=== PATIENT | male | born 1935 | race Caucasian/White ===

== ENCOUNTER 2017-06-21 10:54 | Outpatient (RCR) | payer MEDICARE, OTHER ==
[2017-06-17 10:58] VITALS: BP 156/65
[~2017-06-21 10:54] MED LIST: ALE70 PO; ALLERGY SHOTS SUBQ; AZIT-9 PO; CIP500 PO; COS10OD OU; FLUT12HF2 INH; HYDR12.561 PO; LEVO5TAB8 PO; LISI-374 PO; MECL25TA9 PO; PHEN240S3 PO; PRE20 PO; PRED-314 PO
== END 2017-06-22 11:24 | disposition home or self-care (01) ==
LOC: RAON 10:54
PROVIDERS: ATTEND Radiology Radiation Oncology
DX: Z85.46 Personal history of malignant neoplasm of prostate (principal); I10 Essential (primary) hypertension; Z92.3 Personal history of irradiation; Z87.891 Personal history of nicotine dependence
CPT/HCPCS: 36415; 84153; G0463; 99212

== ENCOUNTER 2018-05-22 14:06 | Emergency (ER) | payer MEDICARE, OTHER ==
--- NOTE | 2018-05-22 14:54 | ER Report ---
History and Physical Time Seen By MD: 14:54 HPI/ROS CHIEF COMPLAINT: diarrhea, vomiting HISTORY OF PRESENT ILLNESS: This is an 82 year old male. He has had nausea and vomiting and diarrhea since yesterday. Multiple episodes. Feeling weak and di zzy. No abdominal pain. No chest pain. No cough or shortness of breath. No sick contacts. Unsure about any possible food poisoning. Allergies: Coded Allergies: No Known Drug Allergies (Unverified , 05/22/18) Home Meds Active Scripts Ondansetron 4 Mg Odt (ONDANSETRON 4 MG ODT) 4 Mg Tab.rapdis, 4 MG PO Q6H PRN for NAUSEA/VOMITING, #20 TAB 0 Refills Prov:ALBANIA FRANKLIN MD 05/22/18 Reported Medications [Allergy Shots] No Conflict Check, SUBQ Q2WK 06/18/15 Hydrochlorothiazide (Hydrochlorothiazide) 12.5 Mg Tablet, 12.5 MG PO DAILY, 0 Refills 04/12/12 Lisinopril (Lisinopril) 40 Mg Tablet, 40 MG PO DAILY, 0 Refills 04/12/12 Levocetirizine Dihydrochloride (XYZAL) 5 Mg Tablet, 5 MG PO DAILY, 0 Refills 04/12/12 Discontinued Reported Medications Salmeterol Xinaf/Fluticasone (Advair Hfa 115/21 Mcg Inhaler) 1 Puff Inh, 1 PUFF INH BID, 0 Refills 04/12/12 Discontinued Scripts Meclizine Hcl (MECLIZINE HCL) 25 Mg Tablet, 25 MG PO TID, #30 TAB Prov:RACHEAL ARREOLA MD 10/09/15 Reviewed Nurses Notes: Yes Hx Smoking: No Smoking Status: Never Smoker Exposure to Second Hand Smoke?: No Hx Substance Use Disorder: No Hx Alcohol Use: No Constitutional Vital Sign - Last 24 Hours 05/22/18 05/22/18 05/22/18 05/22/18 15:00 15:02 15:06 15:30 Temp 98.2 Pulse 84 83 Resp 12 B/P (MAP) 124/59 (80) 124/59 106/55 (72) Pulse Ox 90 90 O2 Delivery Room Air Room Air 05/22/18 05/22/18 05/22/18 05/22/18 15:36 15:58 16:00 16:11 Pulse 74 66 B/P (MAP) 103/51 (68) Pulse Ox 84 95 98 O2 Delivery Room Air Nasal Cannula Nasal Cannula O2 Flow Rate 2 2 05/22/18 05/22/18 05/22/18 05/22/18 16:30 16:35 17:00 17:05 Pulse 66 70 B/P (MAP) 99/52 (68) 108/54 (72) Pulse Ox 98 93 O2 Delivery Nasal Cannula Nasal Cannula O2 Flow Rate 2 2 05/22/18 05/22/18 05/22/18 05/22/18 17:30 17:35 18:00 18:05 Pulse 69 68 B/P (MAP) 104/52 (69) 91/50 (64) Pulse Ox 93 94 O2 Delivery Room Air Room Air 05/22/18 05/22/18 05/22/18 05/22/18 18:30 18:35 18:40 19:00 Pulse 67 68 B/P (MAP) 103/52 (69) 104/54 (71) Pulse Ox 95 97 O2 Delivery Room Air 05/22/18 05/22/18 05/22/18 19:10 19:15 19:30 Pulse 68 67 B/P (MAP) 105/50 (68) Pulse Ox 97 95 Intake and Output 05/22/18 05/22/18 05/23/18 15:00 23:00 07:00 Intake Total 3000 ml Balance 3000 ml Physical Exam General Appearance: Alert, no distress. Eyes: Pupils equal and round no injection. ENT: Normal oral mucosa. Moist mucous membranes. Neck: Neck is supple and non tender. Respiratory: Chest is non tender, lungs are clear to auscultation. Cardiac: regular rate and rhythm Gastrointestinal: Abdomen is soft and non tender, no masses, bowel sounds normal. Musculoskeletal: Extremities have full range of motion. Non tender. Skin: No rashes or lesions. Neuro: Alert and oriented x3. No acute distress. DIFFERENTIAL DIAGNOSIS: After history and physical exam differential diagnosis was considered for ongoing nausea, vomiting and diarrhea, signs of dehydration, we'll look for various causes of this. Medical Decision Making Data Points Result Diagram: 05/22/18 1532 05/22/18 1532 Laboratory Hematology Test 05/22/18 15:32 Red Blood Count 4.52 M/uL (4.00-5.60) Mean Corpuscular Volume 98.3 fL (80.0-96.0) Mean Corpuscular Hemoglobin 32.7 pg (26.0-33.0) Mean Corpuscular Hemoglobin Concent 33.3 g/dL (32.0-36.0) Red Cell Distribution Width 13.3 % (11.5-14.5) Mean Platelet Volume 8.1 fL (7.2-11.1) Neutrophils (%) (Auto) 92.4 % (39.4-72.5) Lymphocytes (%) (Auto) 2.1 % (17.6-49.6) Monocytes (%) (Auto) 5.0 % (4.1-12.4) Eosinophils (%) (Auto) 0.0 % (0.4-6.7) Basophils (%) (Auto) 0.5 % (0.3-1.4) Nucleated RBC Relative Count (auto) 1.0 /100WBC Neutrophils # (Auto) 10.9 K/uL (2.0-7.4) Lymphocytes # (Auto) 0.3 K/uL (1.3-3.6) Monocytes # (Auto) 0.6 K/uL (0.3-1.0) Eosinophils # (Auto) 0.0 K/uL (0.0-0.5) Basophils # (Auto) 0.1 K/uL (0.0-0.1) Nucleated RBC Absolute Count (auto) 0.11 K/uL Sodium Level 135 mmol/L (137-145) Potassium Level 4.3 mmol/L (3.5-5.0) Chloride Level 107 mmol/L (98-107) Carbon Dioxide Level 21 mmol/L (22-30) Blood Urea Nitrogen 39 mg/dl (9-21) Creatinine 1.60 mg/dl (0.66-1.25) Glomerular Filtration Rate Calc 41.4 Random Glucose 127 mg/dl (75-110) Calcium Level 8.7 mg/dl (8.4-10.2) Total Bilirubin 0.8 mg/dl (0.2-1.3) Aspartate Amino Transf (AST/SGOT) 21 U/L (0-35) Alanine Aminotransferase (ALT/SGPT) 28 U/L (0-56) Alkaline Phosphatase 49 U/L (0-126) Total Protein 6.9 g/dl (6.3-8.2) Albumin 4.1 g/dl (3.5-5.0) Chemistry Test 05/22/18 15:32 White Blood Count 11.8 k/uL (4.5-11.0) Red Blood Count 4.52 M/uL (4.00-5.60) Hemoglobin 14.8 g/dL (14.0-18.0) Hematocrit 44.4 % (42.0-52.0) Mean Corpuscular Volume 98.3 fL (80.0-96.0) Mean Corpuscular Hemoglobin 32.7 pg (26.0-33.0) Mean Corpuscular Hemoglobin Concent 33.3 g/dL (32.0-36.0) Red Cell Distribution Width 13.3 % (11.5-14.5) Platelet Count 280 K/uL (150-450) Mean Platelet Volume 8.1 fL (7.2-11.1) Neutrophils (%) (Auto) 92.4 % (39.4-72.5) Lymphocytes (%) (Auto) 2.1 % (17.6-49.6) Monocytes (%) (Auto) 5.0 % (4.1-12.4) Eosinophils (%) (Auto) 0.0 % (0.4-6.7) Basophils (%) (Auto) 0.5 % (0.3-1.4) Nucleated RBC Relative Count (auto) 1.0 /100WBC Neutrophils # (Auto) 10.9 K/uL (2.0-7.4) Lymphocytes # (Auto) 0.3 K/uL (1.3-3.6) Monocytes # (Auto) 0.6 K/uL (0.3-1.0) Eosinophils # (Auto) 0.0 K/uL (0.0-0.5) Basophils # (Auto) 0.1 K/uL (0.0-0.1) Nucleated RBC Absolute Count (auto) 0.11 K/uL Glomerular Filtration Rate Calc 41.4 Calcium Level 8.7 mg/dl (8.4-10.2) Total Bilirubin 0.8 mg/dl (0.2-1.3) Aspartate Amino Transf (AST/SGOT) 21 U/L (0-35) Alanine Aminotransferase (ALT/SGPT) 28 U/L (0-56) Alkaline Phosphatase 49 U/L (0-126) Total Protein 6.9 g/dl (6.3-8.2) Albumin 4.1 g/dl (3.5-5.0) EKG/Imaging Imaging Exam type: ACUTE ABDOMEN SERIES 3 VIEW History: vomiting, diarrhea Comparison: Two-view chest June 18, 2012. Findings: There are small air-fluid levels in the nondilated large and small bowel. There is no evidence of free air beneath hemidiaphragms. No evidence organomegaly. There is a dextroconvex scoliosis of the lumbar spine with extensive spondylotic changes. Frontal view the chest demonstrates mild pleural thickening of the left costophrenic angle. There is no evidence of acute pulmonary consolidation. The cardiac silhouette appears mildly enlarged but unchanged. There are spondylotic changes of the thoracic spine IMPRESSION: 1. Small air-fluid level seen in the nondilated large and small bowel No evidence of pulmonary consolidation Report Dictated By: Jeannie Garay MD at 05/22/2018 3:59 PM ED Course/Re-evaluation Clinical Indication for ER IV: Hydration, IV Access ED Course The patient felt much better after a liter of normal saline and some Zofran. No further diarrhea so we were unable to obtain stool studies. He had a second liter of normal saline as well. Labs unremarkable other than signs of dehydration. Decision to Disposition Date: May 22, 2018 Decision to Disposition Time: 17:16 Depart Departure Latest Vital Signs Vital Signs Date Time Temp Pulse Resp B/P (MAP) Pulse Ox O2 Delivery O2 Flow Rate FiO2 05/22/18 19:30 105/50 (68) 05/22/18 19:15 67 95 05/22/18 18:35 Room Air 05/22/18 17:05 2 05/22/18 15:02 98.2 12 Impression: Primary Impression: Nausea & vomiting Additional Impressions: Diarrhea Dehydration Condition: Improved Disposition: HOME OR SELF-CARE Referrals: LUANN AQUINO MD (PCP) New Scripts Ondansetron 4 Mg Odt (ONDANSETRON 4 MG ODT) 4 Mg Tab.rapdis 4 MG PO Q6H PRN for NAUSEA/VOMITING, #20 TAB 0 Refills Prov: ALBANIA FRANKLIN MD 05/22/18 Patient Instructions: Acute Diarrhea (ED), Acute Nausea and Vomiting (ED) Additional Instructions: Your nausea/vomiting and diarrhea could be due to food poisoning or could be due to a virus. You were a little dehydrated because of this. Zofran 4mg tablets can be used every 6 hours as needed for further nausea. Liquids and bland foods initially and advance to a regular diet as tolerated. Return as needed or see your regular doctor for symptoms that do not resolve over the next several days. Return to the ER for worsening symptoms. Problem Qualifiers Primary Impression: Nausea & vomiting Vomiting type: unspecified Vomiting Intractability: non-intractable Qualified Codes: R11.2 - Nausea with vomiting, unspecified Additional Impressions: Diarrhea Diarrhea type: unspecified type Qualified Codes: R19.7 - Diarrhea, unspecified ALBANIA FRANKLIN MD May 22, 2018 14:54
[2018-05-22] MEDS ORDERED: ONDANSETRON 4 MG/2 ML VIAL IVP ONE (15:20)
[2018-05-22] MEDS ORDERED: NS(*) 0.9% 1000 ML BAG 1,000 ML IV ONE ×2 (15:20→16:50)
[2018-05-22 15:38] LABS: PLATELET COUNT, AUTOMATED 280 K/uL (150-450)
--- NOTE | 2018-05-22 16:06 | RADIOLOGY IMAGING REPORT ---
FACILITY: [facility] PATIENT NAME: Mitchell Marie : 1935 MR: [id number] V: [id number] EXAM DATE: ORDERING PHYSICIAN: ALBANIA FRANKLIN TECHNOLOGIST: Location: [facility] Patient: Mitchell Marie : 1935 Visit/Account:[id number] Date of Sevice: 05/22/2018 Exam type: ACUTE ABDOMEN SERIES 3 VIEW History: vomiting, diarrhea Comparison: Two-view chest June 18, 2012. Findings: There are small air-fluid levels in the nondilated large and small bowel. There is no evidence of fr ee air beneath hemidiaphragms. No evidence organomegaly. There is a dextroconvex scoliosis of the l umbar spine with extensive spondylotic changes. Frontal view the chest demonstrates mild pleural thi ckening of the left costophrenic angle. There is no evidence of acute pulmonary consolidation. The cardiac silhouette appears mildly enlarged but unchanged. There are spondylotic changes of the thora cic spine IMPRESSION: 1. Small air-fluid level seen in the nondilated large and small bowel No evidence of pulmonary consolidation Report Dictated By: Jeannie Garay MD at 05/22/2018 3:59 PM Report E-Signed By: Jeannie Garay MD at 05/22/2018 4:01 PM WSN:AVERY
[2018-05-22] MEDS ORDERED: ONDA4TAB9 PO (17:18)
[2018-05-22] MEDS ORDERED: LR(*) 1000 ML BAG 1,000 ML ONE (18:19)
[2018-05-22 19:30] VITALS: BP 105/50
== END 2018-05-22 19:45 | disposition home or self-care (01) ==
LOC: ER 15:00
DX: R11.2 Nausea with vomiting, unspecified (principal); R19.7 Diarrhea, unspecified; E86.0 Dehydration
CPT/HCPCS: 74022; 85025; 96361; 96374; 99284; J2405; J7030; J7120; 82040; 82247; 82310; 82374; 82435; 82565; 82947; 84075; 84132; 84155; 84295; 84450; 84460; 84520

== ENCOUNTER 2018-06-20 10:46 | Outpatient (RCR) | payer MEDICARE, OTHER ==
[2018-06-13 11:46] VITALS: BP 140/63
[~2018-06-20 10:46] MED LIST changes: +ONDA4TAB9 PO
[2018-06-20 10:59] VITALS: BP 143/76
--- NOTE | 2018-06-20 20:52 | ONCOLOGY FOLLOW UP NOTE ---
EVENT DATE: June 20, 2018 REASON FOR VISIT Known history of high-volume prostate carcinoma, treated with external beam radiotherapy in 2010. Patient is here for annual cancer surveillance appointment. HISTORY OF PRESENT ILLNESS Patient was originally diagnosed with a Hernan 6 adenocarcinoma of the prostate involving four of 12 core biopsies in 2010. His tumor occupied 90% of the left base, 20% of the left base, 20% of the right apex, and 5% of the left lateral apex and right apex. His pretreatment PSA was 6.7 ng/mL. He received full-dose external beam radiation therapy to 7560 cGy in standard fractionation, completed 08/24/10. INTERVAL HISTORY Patient is doing well. He denies any change in voiding function. No dysuria. No bone pain. His PSA is remarkably stable at 0.3 ng/mL with no recovery in the last year. I did note an incidental elevation in his BUN and creatinine at 39 and 1.6, however. In looking back over the last two years, this is new for the patient. He is not drinking as much water according to his . He has been shoveling some snow. He did take an Aleve or two in the last 10 days. He will be instructed to increase fluid intake and follow up primary care in two weeks to have the lab work repeated. MEDICATIONS 1. Hydrochlorothiazide 12.5 mg a day. 2. Lisinopril 40 mg a day. 3. Xyzal 5 mg a day. 4. Allergy shots every other week. 5. Advair 45/21 mg daily. ALLERGIES Intolerance to ACETAMINOPHEN listed. FAMILY HISTORY Retired from [employer]. 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 Nonsmoker. He does not drink. , three children. has lung cancer. She is also followed in my clinic. COMPREHENSIVE REVIEW OF SYSTEMS No worsened joint pain or stiffness. Otherwise negative. PHYSICAL EXAMINATION GENERAL: Pleasant 82-year-old male, alert, cooperative. VITAL SIGNS: BP 143/76, pulse 71, respirations 16, O2 sat 93% on room air. Weight 167.9. LUNGS: Clear bilaterally. No lymphadenopathy. HEART: Regular rate. No audible murmur. ABDOMEN: No gross organomegaly. RECTAL: Deferred due to his normal PSA. EXTREMITIES: No edema. IMPRESSION AND PLAN 1. No evidence of prostate cancer recurrence. He is now eight years remote from therapy, which was successful. Plan is to repeat PSA in a year with CBC and CMP. 2. New elevation of the BUN and creatinine, probably due to decreased fluid intake. He will increase his fluids over two weeks, and he was also instructed to follow up with Dr. Jansen and have his lab work repeated with further evaluation as appropriate at that time based on his new numbers. Clinical visit was completed over 40 minutes this morning, of which greater than 35 minutes were spent face to face. SUGEY
== END 2018-08-25 12:47 | disposition home or self-care (01) ==
LOC: RAON 10:46
PROVIDERS: ATTEND Radiology Radiation Oncology
DX: Z85.46 Personal history of malignant neoplasm of prostate (principal); Z92.3 Personal history of irradiation
CPT/HCPCS: 36415; 84153; G0463; 99212

== ENCOUNTER → 2018-11-29 | Outpatient (REF) | payer MEDICARE, OTHER | LOC: ZZSENDIN 15:31 | PROVIDERS: ATTEND Family Medicine | DX: Z01.818 Encounter for other preprocedural examination (principal) | CPT/HCPCS: 81001 ==